=== PATIENT | female | born 1965 | race Caucasian/White ===

== ENCOUNTER 2020-05-10 06:49 | Day surgery (SDC) | payer OTHER ==
[2020-05-08 07:49] VITALS: BP 118/73
[~2020-05-10] VITALS: Ht 160 cm; Wt 117.9 kg
[2020-05-10 16:30] VITALS: BP 151/92
== END 2020-05-10 12:00 ==
LOC: DS 06:49
PROVIDERS: ATTEND Internal Medicine Gastroenterology
DX: D50.9 Iron deficiency anemia, unspecified (principal); K57.30 Diverticulosis of large intestine without perforation or abscess without bleeding; I10 Essential (primary) hypertension; E66.9 Obesity, unspecified; Z68.42 Body mass index [BMI] 45.0-49.9, adult; Z80.0 Family history of malignant neoplasm of digestive organs
CPT/HCPCS: 43235; 45378; J1200; J1610; J2250; J2310; J3010; J3490